=== PATIENT | male | born 1940 | race Caucasian/White ===

== ENCOUNTER 2020-02-10 13:05 | Observation (INO) ==
[2020-02-10] MEDS ORDERED: Tdap (Boostrix) Vaccine 0.5 ML SYRINGE IM ONE (13:22)
[2020-02-10] MEDS ORDERED: ceFAZolin 1,000 MG in 0.9 % Sodium Chloride Mini Bag 100 ML IVPB ONE (14:14)
[2020-02-10] MEDS ORDERED: Lidocaine 1% 20 ML MDV INFILT ONE (14:14)
[2020-02-10 14:43] LABS: Basophils % 0.3 %; Eosinophils % 0.2 %; Hematocrit 38.6 % (37.5-50.1); Hemoglobin 13.1 g/dL (12.9-16.9); Immature Granulocytes % 0.3 % (0-4); Lymphocytes # 0.9 K/mcL (0.6-4.6); Lymphocytes % 14.6 %; Mean Corpuscular HGB Conc 33.9 g/dL (31.6-35.5); Mean Corpuscular Hemoglobin 32.2 pg (28.0-33.3); Mean Corpuscular Volume 94.8 fL (83.0-100.0); Monocytes # 0.4 K/mcL (0.0-1.3); Monocytes % 6.6 %; Neutrophils # 4.9 K/mcL (1.6-8.9); Platelet Count 126 K/mcL (140-400); Red Blood Count 4.07 M/mcL (4.19-5.50); Red Cell Distribution Width 13.2 % (11.5-14.5); White Blood Count 6.2 K/mcL (4.3-11.1)
[2020-02-10 14:48] LABS: Prothrombin Time 11.8 Seconds (9.4-12.1)
[2020-02-10 14:51] LABS: Activated Partial Thrombo Time 25.8 Seconds (26.0-36.0)
[2020-02-10 14:57] LABS: BUN/Creatinine Ratio 22 (6-26); Blood Urea Nitrogen 27 mg/dL (8-23); Calcium 8.6 mg/dL (8.6-10.3); Carbon Dioxide 28 mEq/L (23-29); Chloride 105 mEq/L (98-107); Glucose 117 mg/dL (70-105); Osmolality,Calculated 290 (280-300); Potassium 4.7 mEq/L (3.5-5.1); Sodium 137 mEq/L (136-145); eGFR For African Americans > 60 (> 60); eGFR For Non-African Americans 58 (> 60)
[2020-02-10] MEDS ORDERED: Naloxone 0.4 MG/ML INJ IVP PRN ×2 (17:39→22:31)
[2020-02-10] MEDS ORDERED: Mag Hydrox/Al Hydrox/Simeth 30 ML UDC PO PRN ×2 (17:39→22:31)
[2020-02-10] MEDS ORDERED: Ondansetron ODT 4 MG TAB.RAPDIS SL PRN ×2 (17:39→22:31)
[2020-02-10] MEDS ORDERED: Acetaminophen 325 MG TABLET PO PRN ×2 (18:00→22:31)
[2020-02-10] MEDS ORDERED: 0.9 % Sodium Chloride 1,000 ML IVC SCH ×2 (19:15→22:31)
[2020-02-10] MEDS ORDERED: *HR* FentaNYL (PF) 100 MCG/2 ML VIAL ONE (20:24)
[2020-02-10] MEDS ORDERED: Dexamethasone 4 MG/ML VIAL ONE (20:24)
[2020-02-10] MEDS ORDERED: Lidocaine -MPF 2% 2 ML VIAL ONE ×2 (20:24)
[2020-02-10] MEDS ORDERED: *HR* Propofol 200 MG/20 ML VIAL IVP ONE (20:24)
[2020-02-10] MEDS ORDERED: Ondansetron 4 MG/2 ML VIAL ONE (20:24)
[2020-02-10] MEDS ORDERED: *HR* Midazolam HCl 2 MG/2 ML VIAL ONE (20:24)
[2020-02-10] MEDS ORDERED: *HR* FentaNYL (PF) 100 MCG/2 ML VIAL IVP PRN ×2 (20:43→22:31)
[2020-02-10] MEDS ORDERED: Lidocaine/EPI 1:200k 1% PF 10 ML VIAL ONE (21:04)
[2020-02-10] MEDS ORDERED: Ringers Solution, Lactated 1,000 ML ONE (21:50)
[2020-02-11] MEDS: ceFAZolin 2,000 MG in 0.9 % Sodium Chloride 100 ML IVPB SCH ×2 (00:08→08:45)
[2020-02-11] MEDS: *HR* Heparin 5,000 UNIT/ML VIAL SQ SCH ×2 (05:43→17:22)
[2020-02-11] MEDS ORDERED: *HR* Heparin 5,000 UNIT/ML VIAL SQ SCH (06:00)
[2020-02-11] MEDS ORDERED: hydroCHLOROthiazide 25 MG TABLET PO SCH ×2 (09:00)
[2020-02-11] MEDS ORDERED: lisinopriL 5 MG TABLET PO SCH ×2 (09:00)
[2020-02-11 13:25] VITALS: BP 144/79
[2020-02-11] MEDS ORDERED: Clindamycin 900 MG/50 ML 900 MG/50 ML IV.SOLN IVPB SCH (18:00)
== END 2020-02-11 18:44 | disposition home or self-care (01) ==
LOC: 3NENU 13:05 → EMEROOARM 13:05 → SUATTDRO 18:08 → 3NENU 18:44
PROVIDERS: ADMIT Internal Medicine; ATTEND Internal Medicine

== ENCOUNTER 2022-02-02 09:51 | Observation (INO) ==
[2022-02-02] MEDS ORDERED: Iopamidol - 370 500 ML MLS IVP ONE (10:35)
[2022-02-02 11:27] LABS: Basophils % 0.3 %; Eosinophils % 0.2 %; Hematocrit 39.9 % (37.5-50.1); Hemoglobin 13.7 g/dL (12.9-16.9); Immature Granulocytes % 0.3 % (0-4); Lymphocytes # 0.7 K/mcL (0.6-4.6); Lymphocytes % 11.3 %; Mean Corpuscular HGB Conc 34.3 g/dL (31.6-35.5); Mean Corpuscular Hemoglobin 31.7 pg (28.0-33.3); Mean Corpuscular Volume 92.4 fL (83.0-100.0); Mean Platelet Volume 10.1 fL (9.4-12.4); Monocytes # 0.4 K/mcL (0.0-1.3); Monocytes % 7.1 %; Platelet Count 125 K/mcL (140-400); Red Blood Count 4.32 M/mcL (4.19-5.50); Segmented Neutrophils % 80.8 %; White Blood Count 6.2 K/mcL (4.3-11.1)
[2022-02-02 11:39] LABS: Calcium 8.8 mg/dL (8.6-10.3); Potassium 3.8 mEq/L (3.5-5.1)
[2022-02-02 12:58] LABS: Bacteria,Urine Few per hpf (None-Few); Bilirubin,Urine Negative (Negative); Blood,Urine Moderate (Negative); Clarity,Urine Clear (Clear); Color,Urine Yellow (Yellow); Glucose,Urine (UA) Normal (Normal); Ketones,Urine 20 mg/dL (Negative); Leukocyte Esterase,Urine Negative (Negative); Mucus,Urine Few per lpf (None-Few); Nitrite,Urine Negative (Negative); PH,Urine 5.5 pH Units (5.0-8.0); Protein,Urine 50 mg/dL (Neg-Trace); Specific Gravity,Urine 1.028 (1.010-1.025); Squamous Epithelial Cell,Urine Few per hpf (None-Few); Urobilinogen,Urine Normal (Normal); WBC,Urine 0-3 per hpf (0-3)
[2022-02-02] MEDS ORDERED: Ondansetron 4 MG/2 ML VIAL IVP ONE (14:50)
[2022-02-02] MEDS ORDERED: Morphine Sulfate 2 MG/ML SYRINGE IVP ONE (14:50)
[2022-02-02] MEDS ORDERED: Naloxone 0.4 MG/ML INJ IVP PRN (16:11)
[2022-02-02] MEDS ORDERED: Melatonin 3 MG TABLET PO PRN (16:11)
[2022-02-02] MEDS ORDERED: Ondansetron 4 MG/2 ML VIAL IVP PRN (16:11)
[2022-02-02] MEDS ORDERED: *HR* Propofol 200 MG/20 ML VIAL IVP ONE (17:26)
[2022-02-02] MEDS ORDERED: *HR* Succinylcholine 200 MG/10 ML VIAL IVP ONE (17:26)
[2022-02-02] MEDS ORDERED: Lidocaine -MPF 2% 5 ML VIAL ONE (17:26)
[2022-02-02] MEDS: 0.9 % Sodium Chloride 1,000 ML IVC SCH (20:46)
[2022-02-03 02:47] LABS: Basophils % 0.5 %; Eosinophils # 0.1 K/mcL (0.0-0.6); Eosinophils % 1.4 %; Hematocrit 35.8 % (37.5-50.1); Hemoglobin 12.2 g/dL (12.9-16.9); Immature Granulocytes % 0.2 % (0-4); Lymphocytes # 1.4 K/mcL (0.6-4.6); Lymphocytes % 32.9 %; Mean Corpuscular HGB Conc 34.1 g/dL (31.6-35.5); Mean Corpuscular Hemoglobin 31.6 pg (28.0-33.3); Mean Corpuscular Volume 92.7 fL (83.0-100.0); Mean Platelet Volume 9.8 fL (9.4-12.4); Monocytes # 0.5 K/mcL (0.0-1.3); Monocytes % 11.9 %; Neutrophils # 2.3 K/mcL (1.6-8.9); Platelet Count 101 K/mcL (140-400); Red Blood Count 3.86 M/mcL (4.19-5.50); Red Cell Distribution Width 13.2 % (11.5-14.5); Segmented Neutrophils % 53.1 %; White Blood Count 4.3 K/mcL (4.3-11.1)
[2022-02-03 03:21] LABS: Albumin 3.2 g/dL (3.5-5.7); Albumin/Globulin Ratio 1.3 (1.1-2.2); Bilirubin,Total 0.7 mg/dL (0.3-1.0); Calcium 7.6 mg/dL (8.6-10.3); Globulin 2.4 g/dL (2.4-3.5); Magnesium 1.9 mg/dL (1.6-2.6); Potassium 3.7 mEq/L (3.5-5.1); Total Protein 5.6 g/dL (6.4-8.9)
[2022-02-03] MEDS: 0.9 % Sodium Chloride 1,000 ML IVC SCH (06:57)
[2022-02-03] MEDS: polyethylene glycoL 3350 17 GM POWD.PACK PO SCH ×2 (12:23→21:22)
[2022-02-04 02:19] LABS: Basophils % 0.5 %; Eosinophils # 0.1 K/mcL (0.0-0.6); Eosinophils % 1.7 %; Hematocrit 36.1 % (37.5-50.1); Hemoglobin 12.3 g/dL (12.9-16.9); Lymphocytes # 1.6 K/mcL (0.6-4.6); Lymphocytes % 40.2 %; Mean Corpuscular HGB Conc 34.1 g/dL (31.6-35.5); Mean Corpuscular Hemoglobin 31.2 pg (28.0-33.3); Mean Corpuscular Volume 91.6 fL (83.0-100.0); Mean Platelet Volume 9.8 fL (9.4-12.4); Monocytes # 0.4 K/mcL (0.0-1.3); Monocytes % 9.2 %; Platelet Count 110 K/mcL (140-400); Red Blood Count 3.94 M/mcL (4.19-5.50); Red Cell Distribution Width 12.8 % (11.5-14.5); Segmented Neutrophils % 48.4 %
[2022-02-04 02:40] LABS: Albumin 3.4 g/dL (3.5-5.7); Albumin/Globulin Ratio 1.5 (1.1-2.2); Bilirubin,Total 0.7 mg/dL (0.3-1.0); Calcium 7.8 mg/dL (8.6-10.3); Globulin 2.3 g/dL (2.4-3.5); Potassium 3.7 mEq/L (3.5-5.1); Total Protein 5.7 g/dL (6.4-8.9)
[2022-02-04] MEDS: polyethylene glycoL 3350 17 GM POWD.PACK PO SCH (11:05)
[2022-02-04 11:07] VITALS: BP 122/75; PULSE 69; TEMP 97.9; O2SAT 93
== END 2022-02-04 14:43 | disposition home or self-care (01) ==
LOC: EMEROOARM 09:51 → 3ANU 09:51 → SUATTDRO 16:36 → 3ANU 17:35
PROVIDERS: ADMIT Internal Medicine; ATTEND Hospitalist

== ENCOUNTER 2022-03-27 10:59 | Inpatient (IN) ==
[2022-03-27] MEDS ORDERED: cefOXitin 2,000 MG in 0.9 % Sodium Chloride 20 ML IVP ONE (11:50)
[2022-03-27] MEDS ORDERED: Ringers Solution, Lactated 1,000 ML IVC SCH (12:00)
[2022-03-27] MEDS ORDERED: Lidocaine -MPF 2% 2 ML VIAL ONE ×2 (12:47→14:10)
[2022-03-27] MEDS ORDERED: *HR* Propofol 200 MG/20 ML VIAL IVP ONE ×2 (12:47→14:18)
[2022-03-27] MEDS ORDERED: *HR* FentaNYL (PF) 100 MCG/2 ML VIAL ONE ×2 (14:07→15:15)
[2022-03-27] MEDS ORDERED: Ondansetron 4 MG/2 ML VIAL ONE (14:10)
[2022-03-27] MEDS ORDERED: EPHEDrine sulfate 50 MG/10 ML VIAL IVP ONE (14:21)
[2022-03-27] MEDS ORDERED: *HR* Rocuronium Bromide 50 MG/5 ML VIAL ONE (15:00)
[2022-03-27] MEDS: *HR* HYDROmorphone PF 0.5 MG/0.5 ML SYRINGE IVP PRN ×4 (16:49→17:11)
[2022-03-27] MEDS ORDERED: Naloxone 0.4 MG/ML INJ IVP PRN (18:10)
[2022-03-27] MEDS ORDERED: Ondansetron 4 MG/2 ML VIAL IVP PRN (18:10)
[2022-03-27] MEDS: 0.9 % Sodium Chloride 1,000 ML IVC SCH (19:17)
[2022-03-27] MEDS: Acetaminophen IV 1,000 MG/100 ML BAG IVPB SCH (19:46)
[2022-03-28] MEDS: cefOXitin 2,000 MG in 0.9 % Sodium Chloride 20 ML IVP SCH ×3 (00:55→16:51)
[2022-03-28] MEDS: Acetaminophen IV 1,000 MG/100 ML BAG IVPB SCH ×3 (00:55→14:16)
[2022-03-28] MEDS: *HR* Metoprolol 5 MG/5 ML VIAL IVP PRN (00:56)
[2022-03-28 08:26] LABS: Basophils % 0.1 %; Hematocrit 40.3 % (37.5-50.1); Hemoglobin 14.1 g/dL (12.9-16.9); Immature Granulocytes % 0.4 % (0-4); Lymphocytes # 0.5 K/mcL (0.6-4.6); Lymphocytes % 4.5 %; Mean Corpuscular Hemoglobin 31.8 pg (28.0-33.3); Mean Platelet Volume 9.3 fL (9.4-12.4); Monocytes # 0.5 K/mcL (0.0-1.3); Monocytes % 4.3 %; Neutrophils # 9.8 K/mcL (1.6-8.9); Platelet Count 102 K/mcL (140-400); Red Blood Count 4.43 M/mcL (4.19-5.50); Red Cell Distribution Width 12.9 % (11.5-14.5); Segmented Neutrophils % 90.7 %; White Blood Count 10.9 K/mcL (4.3-11.1)
[2022-03-28 08:47] LABS: Calcium 8.4 mg/dL (8.6-10.3); Magnesium 1.6 mg/dL (1.6-2.6); Phosphorous 3.8 mg/dL (2.7-4.5); Potassium 4.3 mEq/L (3.5-5.1)
[2022-03-28] MEDS: 0.9 % Sodium Chloride 1,000 ML IVC SCH (08:53)
[2022-03-28] MEDS ORDERED: 0.9 % Sodium Chloride 1,000 ML IVC SCH (11:22)
[2022-03-28] MEDS: *HR* Metoprolol 5 MG/5 ML VIAL IVP SCH ×2 (12:42→18:42)
[2022-03-28] MEDS ORDERED: Acetaminophen 325 MG TABLET PO PRN (17:49)
[2022-03-28] MEDS ORDERED: *HR* HYDROcodone/Acet 5/325 mg TABLET PO PRN (17:49)
[2022-03-28] MEDS: *HR* Heparin 5,000 UNIT/ML VIAL SQ SCH (18:41)
[2022-03-29] MEDS: *HR* Metoprolol 5 MG/5 ML VIAL IVP SCH ×2 (00:09→06:27)
[2022-03-29 05:42] LABS: Calcium 8.5 mg/dL (8.6-10.3)
[2022-03-29] MEDS: *HR* Heparin 5,000 UNIT/ML VIAL SQ SCH (06:23)
[2022-03-29 07:02] LABS: Hematocrit 35.3 % (37.5-50.1); Hemoglobin 12.3 g/dL (12.9-16.9); Immature Granulocytes % 0.5 % (0-4); Immature Platelets 2.4 % (1.1-6.1); Lymphocytes # 0.7 K/mcL (0.6-4.6); Lymphocytes % 8.4 %; Mean Corpuscular HGB Conc 34.8 g/dL (31.6-35.5); Mean Corpuscular Hemoglobin 31.6 pg (28.0-33.3); Mean Corpuscular Volume 90.7 fL (83.0-100.0); Mean Platelet Volume 9.5 fL (9.4-12.4); Monocytes # 0.6 K/mcL (0.0-1.3); Monocytes % 6.5 %; Neutrophils # 7.3 K/mcL (1.6-8.9); Platelet Count 106 K/mcL (140-400); Red Blood Count 3.89 M/mcL (4.19-5.50); Red Cell Distribution Width 13.2 % (11.5-14.5); Segmented Neutrophils % 84.6 %; White Blood Count 8.6 K/mcL (4.3-11.1)
[2022-03-29 07:45] VITALS: O2SAT 94
[2022-03-29] MEDS: *HR* Metoprolol 5 MG/5 ML VIAL IVP PRN (09:08)
[2022-03-29] MEDS ORDERED: Furosemide 20 MG/2 ML VIAL IVP ONE (11:32)
[2022-03-29] MEDS ORDERED: Flu Vac QV 22-23 (6MOS UP)/PF 0.5 ML SYRINGE IM ONE (14:25)
[2022-03-29 15:31] VITALS: BP 184/89; PULSE 79; TEMP 98.1
== END 2022-03-29 17:02 | disposition home or self-care (01) | DRG 331 ==
LOC: SAMDAY 10:59 → 3ANU 13:00
PROVIDERS: ADMIT Surgery; ATTEND Surgery